=== PATIENT | male | born 1950 | race Caucasian/White ===

== ENCOUNTER → 2019-10-28 08:05 | Outpatient (BNVA) | payer MEDICARE, MEDICAID, SELFPAY | PROVIDERS: Family Provider Family Medicine; PCP Family Medicine; Visit Provider Anesthesiology | DX: G89.29 Other chronic pain (principal); M54.9 Dorsalgia, unspecified; M54.2 Cervicalgia; M25.511 Pain in right shoulder; M25.512 Pain in left shoulder; F17.210 Nicotine dependence, cigarettes, uncomplicated; Z79.891 Long term (current) use of opiate analgesic | CPT/HCPCS: 99214 ==

== ENCOUNTER → 2019-12-23 09:30 | Outpatient (BNVA) | payer MEDICARE, MEDICAID, SELFPAY | PROVIDERS: Family Provider Family Medicine; PCP Physician Assistant Medical; Visit Provider Nurse Practitioner | DX: G89.29 Other chronic pain (principal); M54.5 Low back pain; M54.2 Cervicalgia; M25.511 Pain in right shoulder; M25.512 Pain in left shoulder; F17.210 Nicotine dependence, cigarettes, uncomplicated; Z79.891 Long term (current) use of opiate analgesic; Z71.6 Tobacco abuse counseling | CPT/HCPCS: 99214 ==

== ENCOUNTER → 2020-03-17 10:51 | Outpatient (BNVA) | payer MEDICARE, MEDICAID, SELFPAY | PROVIDERS: Family Provider Family Medicine; PCP Physician Assistant Medical; Visit Provider Anesthesiology | DX: G89.29 Other chronic pain (principal); M54.5 Low back pain; M54.2 Cervicalgia; M25.511 Pain in right shoulder; M25.512 Pain in left shoulder; F17.210 Nicotine dependence, cigarettes, uncomplicated; Z79.891 Long term (current) use of opiate analgesic | CPT/HCPCS: 99214 ==

== ENCOUNTER → 2020-04-20 10:22 | Outpatient (BNVA) | payer MEDICARE, MEDICAID, SELFPAY | PROVIDERS: Family Provider Family Medicine; PCP Physician Assistant Medical; Visit Provider Anesthesiology | DX: G89.29 Other chronic pain (principal); M54.42 Lumbago with sciatica, left side; M54.41 Lumbago with sciatica, right side; M54.2 Cervicalgia; M25.511 Pain in right shoulder; M25.512 Pain in left shoulder; F17.210 Nicotine dependence, cigarettes, uncomplicated; Z79.891 Long term (current) use of opiate analgesic | CPT/HCPCS: 99214 ==

== ENCOUNTER → 2020-06-17 10:19 | Outpatient (BNVA) | payer MEDICARE, MEDICAID, SELFPAY | PROVIDERS: Family Provider Family Medicine; PCP Physician Assistant Medical; Visit Provider Nurse Practitioner | DX: G89.29 Other chronic pain (principal); M54.42 Lumbago with sciatica, left side; M54.41 Lumbago with sciatica, right side; M54.2 Cervicalgia; M25.511 Pain in right shoulder; M25.512 Pain in left shoulder; F17.210 Nicotine dependence, cigarettes, uncomplicated; Z79.891 Long term (current) use of opiate analgesic; Z71.6 Tobacco abuse counseling | CPT/HCPCS: 99214 ==

== ENCOUNTER → 2020-08-12 09:25 | Outpatient (BNVA) | payer MEDICARE, MEDICAID, SELFPAY | PROVIDERS: Family Provider Family Medicine; PCP Physician Assistant Medical; Visit Provider Anesthesiology | DX: G89.29 Other chronic pain (principal); M54.5 Low back pain; M54.2 Cervicalgia; F17.210 Nicotine dependence, cigarettes, uncomplicated; Z79.891 Long term (current) use of opiate analgesic | CPT/HCPCS: 99213; 99214 ==

== ENCOUNTER → 2020-10-19 09:46 | Outpatient (BNVA) | payer MEDICARE, MEDICAID, SELFPAY | PROVIDERS: Family Provider Family Medicine; PCP Physician Assistant Medical; Visit Provider Anesthesiology | DX: G89.29 Other chronic pain (principal); M54.5 Low back pain; M54.2 Cervicalgia; F17.210 Nicotine dependence, cigarettes, uncomplicated; Z79.891 Long term (current) use of opiate analgesic | CPT/HCPCS: 99214 ==

== ENCOUNTER → 2020-12-14 10:01 | Outpatient (BNVA) | payer MEDICARE, MEDICAID, SELFPAY | PROVIDERS: Family Provider Family Medicine; PCP Physician Assistant Medical; Visit Provider Anesthesiology | DX: G89.29 Other chronic pain (principal); M54.5 Low back pain; M54.2 Cervicalgia; M25.511 Pain in right shoulder; M25.512 Pain in left shoulder; F17.210 Nicotine dependence, cigarettes, uncomplicated; Z79.891 Long term (current) use of opiate analgesic | CPT/HCPCS: 99214 ==

== ENCOUNTER → 2021-02-15 12:54 | Outpatient (BNVA) | payer MEDICARE, MEDICAID, SELFPAY | PROVIDERS: Family Provider Family Medicine; PCP Physician Assistant Medical; Visit Provider Nurse Practitioner | DX: G89.29 Other chronic pain (principal); M54.2 Cervicalgia; M54.5 Low back pain; M25.511 Pain in right shoulder; M25.512 Pain in left shoulder; F17.210 Nicotine dependence, cigarettes, uncomplicated; Z79.891 Long term (current) use of opiate analgesic; Z71.6 Tobacco abuse counseling | CPT/HCPCS: 99213; 99214 ==

== ENCOUNTER 2021-04-19 19:01 | Emergency (ER) | payer MEDICARE, MEDICAID, SELFPAY ==
[2021-04-19 19:01] VITALS: BP 131/78; PULSE 96; RESP 17; O2SAT 99; BMI 17.3
--- NOTE | 2021-04-19 19:37 | XRR_ITS ---
PROCEDURE INFORMATION: Exam: XR Chest Exam date and time: 04/19/2021 7:37 PM Age: 70 years old Clinical indication: Cough and shortness of breath; Prior surgery; Surgery type: Stents x3; Patient HX: Cough, SOB, spitting up blood TECHNIQUE: Imaging protocol: XR of the chest. Views: 1 view. COMPARISON: No relevant prior studies available. FINDINGS: Lungs: Right upper lobe scarring is appreciated. A calcified granuloma is present in the left lower lobe. No acute airspace process is visualized. Pleural spaces: Unremarkable. No pleural effusion. No pneumothorax. Heart/Mediastinum: Unremarkable. No cardiomegaly. Bones/joints: No acute fracture is visualized. XR/XR chest 1V portable [id number] IMPRESSION: Right upper lobe scarring. A mass is not excluded. Comparison with prior exam and/or CT scan the chest with contrast is recommended for further assessment.
--- NOTE | 2021-04-19 19:38 | ED_ITS ---
HPI - General Adult General: Chief complaint: General Medical Stated complaint: SPITTING UP BLOOD Time Seen by Provider: 04/19/21 19:11 History of Present Illness: HPI narrative: Patient is a 70-year-old male with history of COPD, currently smoking, seen for hemoptysis. 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 He states that over the day today, he has had bright red blood associated with coughing. He denies fever, chest pain associated with this. He is not coughing more than usual. He states that he had to have a blood transfusion several months ago. He denies lightheadedness, abdominal pain, nausea, and has no sick contacts. He has no other acute complaints. Review of Systems General: Reports: 10 or more systems reviewed and unremarkable except in HPI and below PFSH ED PFSH: Medical History (Updated 04/19/21 @ 21:23 by Mitesh Kwok MD) Cervical spine pain Chronic lumbosacral pain Chronic pain of both shoulders Current every day smoker Encounter for long-term use of opiate analgesic Opioid contract exists S/P neck surgery, follow-up exam 2001 Surgical History S/P aneurysm repair RIGHT [id number] S/P cardiac cath 1999 S/P rotator cuff repair RIGHT-2013 Family History Other CAD (coronary artery disease) Social History Smoking and tobacco status: current every day smoker cigarettes Packs smoked per day: 1 Alcohol intake: never Lives independently: Yes History of recent travel: No Physical Exam Const: COMMON NORMALS: no acute distress, patient oriented x3 and alert OTHER: Pale, thin, HENMT: COMMON NORMALS: normocephalic and atraumatic HEAD & SCALP: normocephalic and atraumatic Eye: COMMON NORMALS: Equal, round and reactive pupils present, EOMs intact bilaterally and no scleral icterus PUPIL: Yes Equal, round and reactive pupils present Resp: EFFORT & INSPECTION: Yes able to speak in complete sentences, Yes symmetric chest movement, Yes tachypneic, Yes Actively coughing and Yes uses accessory muscles AUSCULTATION: wheezes expiratory wheezes (in all lung rocha) and scattered wheezes Cardio: COMMON NORMALS: regular rate, regular rhythm and No murmurs present (Cardio) RATE: regular rate RHYTHM: regular rhythm GI: COMMON NORMALS: Normal to inspection, nondistended, normoactive bowel sounds present, Soft to palpation and non-tender PALPATION: Yes Soft to palpation Neuro: COMMON NORMALS: patient oriented x3 SENSORIUM/ORIENTATION: Yes alert Skin: COMMON NORMALS: no rashes or lesions noted GENERAL SKIN EXAM: no rashes or lesions noted Course Vital Signs: Vital signs: Vital Signs Pulse Rate 99 04/19/21 20:57 Respiratory Rate 20 H 04/19/21 20:57 Blood Pressure 112/58 04/19/21 20:57 Pulse Oximetry 97 04/19/21 20:57 MDM - General Adult MDM Narrative: Medical decision making narrative: Patient remained hemodynamically stable throughout ED course. On 2 L nasal cannula, oxygen saturation remains 93%. Chest x-ray shows right upper lobe chronic changes, but nothing acute. He relates massive hemoptysis with aneurysmal bleeding requiring transfusion, however today's bleeding has been nowhere close to as much volume. There is no active hemoptysis when he coughs at this time and hemoglobin is 8.9. We discussed the relative merits of transfer to a larger facility that can perform bronchoscopy, however he does not wish to undergo this at this time. He will be discharged home in stable condition with the understanding that he should return to the emergency department immediately if his hemoptysis worsens. He and show good understanding and agreed to the plan. Lab Data: Labs: Lab Results 04/19/21 04/19/21 Range/Units 19:13 19:13 WBC 14.5 H (4.0-10.0) 10^3/ uL RBC 3.56 L (4.1-5.3) 10^6/u L Hgb 8.3 L (11.7-16.6) g/dL Hct 27.5 L (42.0-52.0) % MCV 77.2 L (80-94) fL MCH 23.3 L (28.0-34.0) pg MCHC 30.2 (30.0-36.0) g/dL RDW 23.8 H (12.1-15.1) % Plt Count 388 (130-400) 10^3/c mm MPV Not Reportable Neut % (Auto) 78.1 % Lymph % (Auto) 7.4 % [place] % (Auto) 12.1 % Eos % (Auto) 1.4 % Baso % (Auto) 0.4 % Neut # (Auto) 11.33 H (1.8-7.7) 10^3/u L Lymph # (Auto) 1.1 (0.8-4.8) 10^3/u L [place] # (Auto) 1.8 H (0.2-0.9) 10^3/u L Eos # (Auto) 0.2 (0.0-0.8) 10^3/u L Baso # (Auto) 0.1 (0.0-0.1) 10^3/u L Nucleated RBC % (a uto) 0 % Nucleated RBCs # 0.0 /100WBC Hypochromasia 1+ H Anisocytosis 2+ H Sodium 128 L (136-145) mmol/L Potassium 3.8 (3.5-5.1) mmol/L Chloride 88 L (98-107) mmol/L Carbon Dioxide 31 H (22-29) mmol/L Anion Gap 12.8 (5-19) BUN 7 L (8-23) mg/dL Creatinine 0.3 L (0.7-1.2) mg/dL GFR Calculation 296.4 H (90-130) mL/min Glucose 103 (65-115) mg/dL Calculated Osmolal ity 264 L (285-295) mOsm/k g Calcium 9.1 (8.5-10.5) mg/dL Total Bilirubin 0.5 (0.15-1.2) mg/dL AST 21 (0-40) U/L ALT 13 (0-41) U/L Alkaline Phosphata se 63 (40-130) IU/L Total Protein 7.1 (6.6-8.7) g/dL Albumin 3.6 (3.5-5.2) g/dL Globulin 3.5 (1.3-4.6) g/dL Discharge Plan Discharge Patient Disposition: Home Clinical Impression: Cough with hemoptysis Condition: Stable Prescriptions: No Action aspirin [Adult Aspirin Regimen] 81 mg tablet,delayed release (DR/EC) 81 mg PO ONCE RF: 0 albuterol sulfate 4 mg tablet extended release 12 hr 4 mg PO Q12H RF: 0 ibuprofen 800 mg tablet 800 mg PO TID PRNRF: 0 acetaminophen [Tylenol] 325 mg tablet 325 mg PO .2 tabs day PRNRF: 0 diclofenac sodium [Voltaren] 1 % gel 4 gm TOPICAL QID PRN (Reason: pain (scale score 4-6)) Qty: 4 RF: 0 hydrocodone-acetaminophen 10-325 mg tablet 1 tab PO .6 times a day PRN (Reason: pain) 30 Days Qty: 180 RF: 0 hydrocodone-acetaminophen 10-325 mg tablet 1 tab PO .6 TIMES DAILY PRN (Reason: pain) 30 Days Qty: 180 RF: 0 Discharge Orders: Discharge ED (Routine); Ordered 04/19/21 Ordered By: Mitesh Kwok Referrals: Jose Angel Francisco [Primary Care Provider] - Discharge Diet: Advance as tolerated Discharge Activity: Resume usual activity Patient Instructions: Acute Hemoptysis (ED) Coding Level of Care Code ED Crew Mess Attendant for Sam Fwd Exam Detailed
[2021-04-19 19:59] LABS: Basophils # 0.1 10^3/uL (0.0-0.1); Basophils % 0.4 %; Eosinophils # 0.2 10^3/uL (0.0-0.8); Eosinophils % 1.4 %; Hematocrit 27.5 % (42.0-52.0); Hemoglobin 8.3 g/dL (11.7-16.6); Lymphocytes # 1.1 10^3/uL (0.8-4.8); Lymphocytes % 7.4 %; Mean Corpuscular HGB Conc 30.2 g/dL (30.0-36.0); Mean Corpuscular Hemoglobin 23.3 pg (28.0-34.0); Mean Corpuscular Volume 77.2 fL (80-94); Monocytes # 1.8 10^3/uL (0.2-0.9); Monocytes % 12.1 %; Neutrophils # 11.33 10^3/uL (1.8-7.7); Neutrophils % 78.1 %; Nucleated Red Blood Cells % 0 %; Platelet Count 388 10^3/cmm (130-400); Red Blood Count 3.56 10^6/uL (4.1-5.3); Red Cell Distribution Width 23.8 % (12.1-15.1); White Blood Count 14.5 10^3/uL (4.0-10.0)
[2021-04-19 20:11] VITALS: BP 112/58; PULSE 92; RESP 19; O2SAT 97
[2021-04-19 20:21] LABS: Alanine Aminotransferase 13 U/L (0-41); Albumin Level 3.6 g/dL (3.5-5.2); Alkaline Phosphatase 63 IU/L (40-130); Anion Gap 12.8 (5-19); Aspartate Amino Transferase 21 U/L (0-40); Blood Urea Nitrogen 7 mg/dL (8-23); Calcium 9.1 mg/dL (8.5-10.5); Carbon Dioxide 31 mmol/L (22-29); Chloride 88 mmol/L (98-107); Globulin 3.5 g/dL (1.3-4.6); Glomerular Filtration Rate 296.4 mL/min (90-130); Glucose 103 mg/dL (65-115); Osmolality Calculated 264 mOsm/kg (285-295); Potassium 3.8 mmol/L (3.5-5.1); Sodium 128 mmol/L (136-145); Total Bilirubin 0.5 mg/dL (0.15-1.2); Total Protein 7.1 g/dL (6.6-8.7)
[2021-04-19 20:36] LABS: Add RBC Morph Yes; Anisocytosis 2+; Hypochromasia 1+; RBC Morph Comp No; Slide Review Slide Review Perform
[2021-04-19] MEDS: HYDROcodone-acetaminophen 10-325 mg Tablet 2 TAB PO (20:53)
[2021-04-19 20:57] VITALS: BP 112/58; PULSE 99; RESP 20; O2SAT 97
--- NOTE | 2021-04-19 21:47 | PC.NURSE ---
2 tab Hydrocodone/Acetaminaphen 10/325mg sent with patient for home admin per Dr. Kwok
[2021-04-19 21:49] VITALS: BP 101/66; PULSE 84; RESP 26; O2SAT 95
== END 2021-04-19 21:49 | disposition home or self-care (01) ==
PROVIDERS: Emergency Provider Student in an Organized Health Care Education/Training Program; PCP Physician Assistant Medical
DX: R04.2 Hemoptysis (principal); Z79.82 Long term (current) use of aspirin; F17.210 Nicotine dependence, cigarettes, uncomplicated
CPT/HCPCS: 71045; 80053; 85025; 99283

== ENCOUNTER → 2021-04-20 10:32 | Outpatient (BNVA) | payer MEDICARE, MEDICAID, SELFPAY | PROVIDERS: PCP Physician Assistant Medical; Visit Provider Nurse Practitioner | DX: G89.29 Other chronic pain (principal); M54.5 Low back pain; M54.2 Cervicalgia; M25.511 Pain in right shoulder; M25.512 Pain in left shoulder; F17.210 Nicotine dependence, cigarettes, uncomplicated; Z79.891 Long term (current) use of opiate analgesic; Z71.6 Tobacco abuse counseling | CPT/HCPCS: 99214; 99406 ==

== ENCOUNTER → 2021-06-08 10:00 | Outpatient (BNVA) | payer MEDICARE, MEDICAID, SELFPAY | PROVIDERS: PCP Physician Assistant Medical; Visit Provider Nurse Practitioner | DX: G89.29 Other chronic pain (principal); M54.5 Low back pain; M54.2 Cervicalgia; M25.511 Pain in right shoulder; M25.512 Pain in left shoulder; F17.210 Nicotine dependence, cigarettes, uncomplicated; Z98.1 Arthrodesis status; Z79.891 Long term (current) use of opiate analgesic; Z71.6 Tobacco abuse counseling | CPT/HCPCS: 99214 ==

== ENCOUNTER → 2021-07-24 10:34 | Outpatient (BNVA) | payer MEDICARE, MEDICAID, SELFPAY | PROVIDERS: PCP Physician Assistant Medical; Visit Provider Surgery | DX: Z20.822 Contact with and (suspected) exposure to COVID-19 (principal) | CPT/HCPCS: 87635 ==

== ENCOUNTER 2021-07-31 08:56 | Day surgery (SDC) | payer MEDICARE, MEDICAID, SELFPAY ==
[2021-07-28 13:43] VITALS: BMI 17.0
--- NOTE | 2021-07-31 09:24 | ANES.PREANE2 ---
Pre-Anesthetic Assessment Pre-Anesthetic Assessment: Height/Weight: Height 1.78 m Weight 53.977 kg Preop Diagnosis: panendoscopy Proposed Procedure: Operation Date: 07/31/21 10:30 Proposed Procedures p EGD/colon 07651 19462 D50.9(Not Applicable) - Raghav Ansari MD s Colonoscopy(Not Applicable) - Raghav Ansari MD Was Beta Lucia taken within 24 hours: N/A Was Clonidine taken within 24 hours: N/A Social: Social History: Tobacco and No alcohol Exam: Pre-Anes Outpt Exam: alert, oriented x 3 and regular rate & rhythm Additional Exam Findings (including area of procedure): Rhonchi Airway: Submandibular: WNL Cervical ROM: WNL MP: 2 Dentition: False Pulmonary: Pulmonary: COPD Comments: Home O2 3L CV/HEM: CV/HEM: Anemia, CAD (Stents) and HTN Musc/skel: Musc/skel: Lower Back Pain and OA/DJD Anesthetic Plan: ASA status: 4 Anesthesia: MAC Risk of > 500 ml blood loss (7ml/kg in children): No PFSH Anesthesia PFSH: Medical History (Updated 07/04/21 @ 12:50 by Dana Rizzo) Cervical spine pain Chronic lumbosacral pain Chronic pain of both shoulders S/P neck surgery, follow-up exam 2001 Surgical History (Updated 07/04/21 @ 09:20 by Raghav Ansari MD) S/P aneurysm repair RIGHT [id number] S/P bilateral inguinal hernia repair S/P cardiac cath 1999 S/P rotator cuff repair RIGHT-2014 Status post colonoscopy Family History Other CAD (coronary artery disease) Social History Smoking and tobacco status: current every day smoker cigarettes Packs smoked per day: 1 Alcohol intake: never Lives independently: Yes History of recent travel: No Data Anesthesia Cardiac Studies: No Data to Display
[2021-07-31 09:46] VITALS: BP 126/77; PULSE 100; RESP 18; TEMP 36.4; O2SAT 99
[2021-07-31] MEDS: sodium chloride 0.9% 1,000 ML 30 ML IV (09:54)
--- NOTE | 2021-07-31 11:10 | P.HP_ITS ---
Same Day Surgery H&P Indication for Procedure/HPI DATE OF PROCEDURE: July 31, 2021 CHIEF COMPLAINT/INDICATIONFOR SURGICAL PROCEDURE: egd/colon PREOP DIAGNOSIS: panendoscopy PLANNED PROCEDRUE: Operation Date: 07/31/21 10:30 Proposed Procedures p EGD/colon 57652 [id number] D50.9(Not Applicable) - Raghav Ansari MD s Colonoscopy(Not Applicable) - Raghav Ansari MD Medications/Allergies* Home Medications Medication Instructions Recorded Confirmed Type albuterol sulfate 4 mg 4 mg PO Q12H 10/26/19 07/31/21 History tablet,extended release,12 hr aspirin 81 mg tablet,delayed 81 mg PO ONCE 10/26/19 07/31/21 History release Allergies/Adverse Reactions Allergy/AdvReac Type Severity Reaction Status Date / Time No Known Allergies Allergy Verified 07/04/21 08:51 Current Medications: Generic Name Dose Route Start Last Admin Trade Name Freq PRN Reason Stop Dose Admin Sodium Chloride 1,000 mls @ 30 mls/hr 07/31/21 09:15 07/31/21 09:54 Sodium Chloride 0.9% IV 08/01/21 09:14 30 mls/hr .Q24H JENNI Administration Pertinent History/Comorbid Conditions* Medical History (Updated 07/04/21 @ 09:20 by Raghav Ansari MD) Cervical spine pain Chronic lumbosacral pain Chronic pain of both shoulders S/P neck surgery, follow-up exam 2001 Surgical History (Updated 07/31/21 @ 11:09 by Raghav Ansari MD) S/P aneurysm repair RIGHT [id number] S/P bilateral inguinal hernia repair S/P cardiac cath 1999 S/P rotator cuff repair RIGHT-2014 Status post colonoscopy (07/31/21) Family History (Updated 10/26/19 @ 14:09 by FREIDA Pablo) CAD (coronary artery disease) Social History Smoking and tobacco status: current every day smoker cigarettes Packs smoked per day: 1 Alcohol intake: never Lives independently: Yes History of recent travel: No Pertinent Exam Findings alert, oriented x 3 and regular rate & rhythm Recommendations Surgery/Procedure today Coding Level of Care Code Acute Classification Counselor for Sam Wilkerson
[2021-07-31 12:08] VITALS: BP 127/72; PULSE 92; RESP 16; TEMP 36.3; O2SAT 93
[2021-07-31 12:21] VITALS: BP 132/89; PULSE 92; RESP 18; O2SAT 99
--- NOTE | 2021-07-31 15:50 | ANE.PACU2 ---
Inpatient post-anesthesia follow up: Airway intact: Yes Vital signs: Temperature 97.3 F Pulse Rate 92 Respiratory Rate 18 Blood Pressure 132/89 Pulse Oximetry 99 Oxygen Delivery Me thod Nasal Cannula Oxygen Flow Rate 3 Fraction of Inspir ed Oxygen Hydration adequate: Yes Nausea and vomiting: No Pain level: 1 Mental status: Baseline
== END 2021-07-31 12:46 | disposition home or self-care (01) ==
PROVIDERS: PCP Physician Assistant Medical; Visit Provider Surgery
PROC: 0DJ08ZZ Inspection of Upper Intestinal Tract, Via Natural or Artificial Opening Endoscopic (ICD-10-PCS; CPT 43235; principal; 2021-07-31 10:30)
PROC: 0DJD8ZZ Inspection of Lower Intestinal Tract, Via Natural or Artificial Opening Endoscopic (ICD-10-PCS; CPT 45378; 2021-07-31 10:30)
DX: D50.9 Iron deficiency anemia, unspecified (principal); Q27.33 Arteriovenous malformation of digestive system vessel; K44.9 Diaphragmatic hernia without obstruction or gangrene; K57.30 Diverticulosis of large intestine without perforation or abscess without bleeding; J44.9 Chronic obstructive pulmonary disease, unspecified; Z99.81 Dependence on supplemental oxygen; I25.10 Atherosclerotic heart disease of native coronary artery without angina pectoris; Z95.5 Presence of coronary angioplasty implant and graft; I10 Essential (primary) hypertension; M19.90 Unspecified osteoarthritis, unspecified site; F17.210 Nicotine dependence, cigarettes, uncomplicated
CPT/HCPCS: 43270; 45385; 88305; 96360; 96361; J2704; J7030

== ENCOUNTER → 2021-08-16 13:25 | Outpatient (BNVA) | payer MEDICARE, MEDICAID, SELFPAY | PROVIDERS: PCP Physician Assistant Medical; Visit Provider Anesthesiology | DX: G89.29 Other chronic pain (principal); M54.2 Cervicalgia; M54.50 Low back pain, unspecified; Z98.1 Arthrodesis status; F17.200 Nicotine dependence, unspecified, uncomplicated; Z79.891 Long term (current) use of opiate analgesic; Z71.6 Tobacco abuse counseling | CPT/HCPCS: 99214 ==

== ENCOUNTER → 2021-10-19 13:05 | Outpatient (BNVA) | payer MEDICARE, MEDICAID, SELFPAY | PROVIDERS: PCP Physician Assistant Medical; Visit Provider Anesthesiology | DX: G89.29 Other chronic pain (principal); M54.50 Low back pain, unspecified; M54.2 Cervicalgia; Z79.891 Long term (current) use of opiate analgesic; Z98.1 Arthrodesis status; Z71.6 Tobacco abuse counseling | CPT/HCPCS: 99214 ==